=== PATIENT | female | born 1950 | race Hispanic/Latino ===

== ENCOUNTER → 2025-05-14 | Outpatient (CLI) | payer OTHER ==
--- NOTE | 2025-05-14 11:26 | HMCIMG ---
PROCEDURE: Esophagram. TECHNIQUE: Oral ingestion of barium and effervescent crystals was performed and multiple fluoroscopic images were obtained to evaluate the esophagus. FLUOROSCOPY TIME: 0.7 minutes pulsed fluoroscopy. FINDINGS: The esophagus demonstrates tertiary motility. There is a small hiatal hernia.The mucosa is normal without evidence of mass, ulceration, or stricture. There was grade 1 gastroesophageal reflux witnessed during this examination. There is no hiatal hernia. A barium tablet easily passed through the esophagus into the stomach without hold up. Real-time visualization of swallowing were performed and demonstrated normal swallowing mechanism, normal contour, and normal mucosa. The stomach is normal size shape and configuration the rugal fold appears to be normal the duodenal bulb and duodenal sweep and upper jejunum appears to be normal. Surgical clips in right upper quadrant from prior cholecystectomy. IMPRESSION: Small hiatal hernia with tertiary contrast visit esophagus there is mild esophageal reflux
== END | disposition home or self-care (01) ==
LOC: RAH 07:54
PROVIDERS: ATTEND Internal Medicine Gastroenterology
DX: K21.9 Gastro-esophageal reflux disease without esophagitis (principal); K44.9 Diaphragmatic hernia without obstruction or gangrene; R13.10 Dysphagia, unspecified; Z90.49 Acquired absence of other specified parts of digestive tract
CPT/HCPCS: 74220